=== PATIENT | male | born 1960 | race Caucasian/White ===

== ENCOUNTER 2016-08-21 13:15 | Outpatient (RCR) | payer OTHER ==
[~2016-08-21 13:15] MED LIST: AMBIEN 10MG10 MG PO; ATARAX 10MG10 MG/TAB; CEPHALEXIN500 M1 PO; CIPRO 500MG TA500 MG PO; CLARITIN 1010 MG/TAB PO; DYNACIN100 M1 PO; FLAGYL500 MG PO; KLONOPIN 0.5MG0.5 MG PO; LEVAQUIN 750MG750 M1 PO; LEVOXYL0.025 MG PO; LOPRESSOR 225 MG/TAB PO; NEXIUM 20MG20 MG PO; PRAVACHOL 40MG40 MG PO; ROXICODONE 55 MG/TAB PO; TAMBOCOR 1100 MG/TAB PO; ULTRAM 50MG TAB50 MG PO
== END 2016-11-06 | disposition home or self-care (01) ==
LOC: MKS.ESL.PT
DX: M54.2 Cervicalgia (principal)
CPT/HCPCS: G8978-GP; G8979-GP

== ENCOUNTER 2016-12-08 15:30 | Outpatient (RCR) | payer OTHER | END 2017-02-02 11:59 | disposition home or self-care (01) | LOC: MKS.ESL.PT 15:30 | DX: M54.2 Cervicalgia (principal); M54.12 Radiculopathy, cervical region | CPT/HCPCS: G0283-GP ==